=== PATIENT | male | born 1980 | race Caucasian/White ===

== ENCOUNTER 2016-11-04 15:51 | Observation (INO) | payer OTHER ==
[~2016-11-04] VITALS: Ht 182.9 cm; Wt 82.0 kg
[2016-11-04 16:02] VITALS: BP 135/61; PULSE 74; RESP 16; TEMP 97.4; O2SAT 100
[2016-11-04] MEDS ORDERED: ONDANSETRON HCL 4 MG/2 ML VIAL IV PUSH ONE (16:30)
[2016-11-04] MEDS ORDERED: MORPHINE SULFATE 4 MG/ML INJ IV PUSH ONE (16:30)
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
[2016-11-04 17:22] LABS: AUTOMATED NEUTROPHIL # 11.8 TH/MM3 (1.8-7.7); BASOPHIL # 0.1 TH/MM3 (0-0.2); BASOPHIL % 0.5 % (0.0-2.0); EOSINOPHIL % 0.1 % (0.0-4.0); HEMATOCRIT 42.3 % (39.0-51.0); HEMO FLAGS DIFF FINAL; LYMPH % 12.4 % (9.0-44.0); LYMPHOCYTE # 1.8 TH/MM3 (1.0-4.8); MEAN CELL VOLUME 88.2 FL (80.0-100.0); MEAN CORPUSCULAR HEMOGLOBIN 29.9 PG (27.0-34.0); MONO % 5.1 % (0.0-8.0); NEUT % 81.9 % (16.0-70.0); PLATELET COUNT 244 TH/MM3 (150-450); RED BLOOD COUNT 4.79 MIL/MM3 (4.50-5.90); RED CELL DISTRIBUTION WIDTH 13.3 % (11.6-17.2); WHITE BLOOD COUNT 14.4 TH/MM3 (4.0-11.0)
[2016-11-04 17:37] LABS: APTT (PATIENT) 20.3 SEC (24.3-30.1); PROTHROMBIN TIME - PATIENT 11.2 SEC (9.8-11.6)
[2016-11-04 17:43] LABS: BICARBONATE 28.1 MEQ/L (21.0-32.0); POTASSIUM 3.7 MEQ/L (3.5-5.1)
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
[2016-11-04] MEDS ORDERED: SENNOSIDES 8.6 MG TAB PO PRN (18:45)
[2016-11-04] MEDS ORDERED: ONDANSETRON HCL 4 MG/2 ML VIAL IVP PRN (18:45)
[2016-11-04] MEDS ORDERED: SODIUM CHLORIDE 0.9% FLUSH 5 ML FLUSH FLUSH PRN (18:45)
[2016-11-04] MEDS ORDERED: ACETAMINOPHEN 325 MG TAB PO PRN ×2 (18:45)
[2016-11-04] MEDS ORDERED: NALOXONE HCL 0.4 MG/ML AMP IV PRN (18:45)
[2016-11-04] MEDS ORDERED: ACETAMINOPHEN/HYDROcodone 325 MG/7.5 MG TAB PO PRN (18:45)
[2016-11-04] MEDS ORDERED: RESP: ALBUTEROL 2.5 MG/IPRATROPIUM 0.5 MG NEB (PRN) NEB (18:45)
[2016-11-04] MEDS ORDERED: TEMAZEPAM 15 MG CAP PO PRN (18:45)
[2016-11-04] MEDS ORDERED: ENALAPRILAT 1.25 MG/ML VIAL IV PUSH PRN (18:45)
[2016-11-04] MEDS ORDERED: HYDROmorphone HCL PF 1 MG/ML VIAL IV PUSH ONE (18:45)
[2016-11-04] MEDS ORDERED: ACETAMINOPHEN/HYDROcodone 325 MG/5 MG TAB PO PRN (18:45)
[2016-11-04] MEDS ORDERED: HYDROmorphone HCL PF 1 MG/ML VIAL IV PRN (18:45)
[2016-11-04] MEDS ORDERED: HYDR-3533 PO (18:50)
[2016-11-04] MEDS ORDERED: SODIUM CHLORIDE 0.9% FLUSH 5 ML FLUSH FLUSH SCH (21:00)
[2016-11-05] MEDS ORDERED: LACTATED RINGER'S 1000 ML INJ 1,000 ML IV SCH (07:00)
== END 2016-11-04 19:31 | disposition left against medical advice (07) ==
LOC: NEDAMB 15:51 → NEDA 18:09
PROVIDERS: ADMIT Hospitalist; ATTEND Hospitalist
DX: S82.892A Other fracture of left lower leg, initial encounter for closed fracture (principal); D72.829 Elevated white blood cell count, unspecified; Y93.17 Activity, water skiing and wake boarding
CPT/HCPCS: 71010; 73610; 73630; 80048; 85025; 85610; 85730; 96374; 96375; 99284; E0113; J1170; J2270; J2405